=== PATIENT | male | born 1975 | race African-American/Black ===

== ENCOUNTER 2023-04-06 10:18 | Emergency (ER) | payer MEDICAID ==
[~2023-04-06] VITALS: Ht 182.9 cm; Wt 87.0 kg
[2023-04-06 10:19] VITALS: O2SAT 100
[2023-04-06] MEDS ORDERED: LIDOCAINE HCL/PF 1% 10 MG/ML 5ML VIAL INFIL ONE (10:45)
[2023-04-06] MEDS ORDERED: TETANUS, DIPHTHERIA, PERTUSSIS VAC/PF 0.5ML (>10YR OLD) IM ONE (10:45)
[2023-04-06 12:41] VITALS: BP 138/85; PULSE 78; RESP 20; TEMP 98.2
== END 2023-04-06 12:42 | disposition home or self-care (01) ==
LOC: ER 10:32
DX: S61.213A Laceration without foreign body of left middle finger without damage to nail, initial encounter (principal); S61.211A Laceration without foreign body of left index finger without damage to nail, initial encounter; S61.215A Laceration without foreign body of left ring finger without damage to nail, initial encounter; W26.9XXA Contact with unspecified sharp object(s), initial encounter; Y93.89 Activity, other specified; Y92.89 Other specified places as the place of occurrence of the external cause; Y99.8 Other external cause status
CPT/HCPCS: 90715; 12004; 90471; 99283; J3490; Z7610

== ENCOUNTER 2023-04-18 12:33 | Emergency (ER) | payer MEDICAID ==
[~2023-04-18] VITALS: Ht 180.3 cm; Wt 90.7 kg
[2023-04-18 12:42] VITALS: O2SAT 98
[2023-04-18 13:11] VITALS: BP 138/74; PULSE 75; RESP 16; TEMP 98.2
== END 2023-04-18 13:11 | disposition home or self-care (01) ==
LOC: ER 12:33
DX: Z48.02 Encounter for removal of sutures (principal)
CPT/HCPCS: 99281